=== PATIENT | female | born 1945 | race Caucasian/White ===

== ENCOUNTER → 2016-04-10 | Day surgery (SDC) | payer MEDICARE, OTHER ==
[2016-04-10 13:18] LABS: HCT 34.5 % (37.0-47.0); HGB 10.9 g/dl (12.5-16.0); MCH 26.2 pg (25.0-31.0); MCHC 31.6 g/dL (32.0-36.0); MCV 82.9 fL (78.0-100.0); MPV 8.9 fL (6.0-9.5); RBC 4.16 M/uL (4.20-5.40); RDW 17.3 % (11.5-14.0); WBC 6.5 K/uL (4.0-10.5)
[2016-04-10 13:43] LABS: CREATININE 0.9 mg/dL (0.5-1.0); POTASSIUM 4.5 mmol/L (3.5-5.1)
== END | disposition home or self-care (01) ==
LOC: FAS 13:00
PROVIDERS: Anesthesiology; Legal Medicine
DX: G56.02 Carpal tunnel syndrome, left upper limb (principal); G56.22 Lesion of ulnar nerve, left upper limb; K21.9 Gastro-esophageal reflux disease without esophagitis; I10 Essential (primary) hypertension; I25.10 Atherosclerotic heart disease of native coronary artery without angina pectoris; Z88.2 Allergy status to sulfonamides; Z88.5 Allergy status to narcotic agent; Z88.8 Allergy status to other drugs, medicaments and biological substances; Z86.73 Personal history of transient ischemic attack (TIA), and cerebral infarction without residual deficits; Z95.5 Presence of coronary angioplasty implant and graft; Z85.41 Personal history of malignant neoplasm of cervix uteri; Z90.49 Acquired absence of other specified parts of digestive tract; Z90.710 Acquired absence of both cervix and uterus; Z79.82 Long term (current) use of aspirin; Z79.899 Other long term (current) drug therapy
CPT/HCPCS: 36415; 80048; J1170; J2270; J2405; J2704; J2795

== ENCOUNTER 2016-04-19 22:53 | Day surgery (SDCO) | payer MEDICARE, OTHER ==
[2016-04-20 00:25] LABS: BASOPHIL 0.5 % (0-2); EOSINOPHIL 2.7 % (0-7); HCT 33.5 % (37.0-47.0); HGB 10.9 g/dl (12.5-16.0); LYMPHOCYTE 29.9 % (15-48); MCH 26.8 pg (25.0-31.0); MCHC 32.5 g/dL (32.0-36.0); MCV 82.5 fL (78.0-100.0); MONOCYTE 7.3 % (0-12); MPV 9.2 fL (6.0-9.5); NEUTROPHIL 59.6 % (41-80); PLT 257 K/uL (150-400); RBC 4.06 M/uL (4.20-5.40); RDW 18.3 % (11.5-14.0); WBC 5.9 K/uL (4.0-10.5)
[2016-04-20 00:44] LABS: ALBUMIN 3.4 g/dL (3.4-4.8); BILIRUBIN - TOTAL 0.3 mg/dL (0.1-1.0); CREATININE 0.8 mg/dL (0.5-1.0); GLOBULIN (CALCULATION) 2.5 g/dL (2.2-4.2); POTASSIUM 3.6 mmol/L (3.5-5.1); TOTAL PROTEIN 5.9 g/dL (6.4-8.3)
[2016-04-20 08:18] LABS: BASOPHIL 0.6 % (0-2); EOSINOPHIL 3.5 % (0-7); HCT 32.9 % (37.0-47.0); HGB 10.8 g/dl (12.5-16.0); LYMPHOCYTE 26.6 % (15-48); MCHC 32.8 g/dL (32.0-36.0); MCV 82.3 fL (78.0-100.0); MONOCYTE 6.9 % (0-12); MPV 8.9 fL (6.0-9.5); NEUTROPHIL 62.4 % (41-80); PLT 281 K/uL (150-400); RDW 18.4 % (11.5-14.0); WBC 5.2 K/uL (4.0-10.5)
[2016-04-20 08:37] LABS: INR 0.97 (0.9-1.2); PROTHROMBIN TIME 12.5 SECONDS (11.7-14.0); PTT 26.7 SECONDS (23.2-31.4)
[2016-04-20 08:44] LABS: CREATININE 0.8 mg/dL (0.5-1.0); POTASSIUM 3.7 mmol/L (3.5-5.1)
[2016-04-20 08:46] LABS: CKMB 1.88 ng/mL (0.97-4.94); TROPONIN T < 0.010 ng/mL
== END 2016-04-20 12:05 | disposition other institution (70) ==
LOC: FER 22:53 → FTCU 04-20 03:35
PROVIDERS: Emergency Medicine; Nurse Practitioner Family; ADMIT Internal Medicine
DX: I25.110 Atherosclerotic heart disease of native coronary artery with unstable angina pectoris (principal); I10 Essential (primary) hypertension; Z86.73 Personal history of transient ischemic attack (TIA), and cerebral infarction without residual deficits; Z95.1 Presence of aortocoronary bypass graft; Z95.5 Presence of coronary angioplasty implant and graft; Z90.710 Acquired absence of both cervix and uterus; Z90.49 Acquired absence of other specified parts of digestive tract; Z98.890 Other specified postprocedural states; Z82.49 Family history of ischemic heart disease and other diseases of the circulatory system; Z80.9 Family history of malignant neoplasm, unspecified; Z88.2 Allergy status to sulfonamides; Z88.5 Allergy status to narcotic agent; Z79.82 Long term (current) use of aspirin; Z79.899 Other long term (current) drug therapy
CPT/HCPCS: 36415; 71275; 80048; 80053; 80061; 82550; 82553; 83880; 84484; 85025; 85610; 85730; 93005; G0378; J1170; J2270; Q9967

== ENCOUNTER 2020-04-11 00:24 | Inpatient (IN) | payer MEDICARE, OTHER ==
[~2020-04-11 00:24] MED LIST: ANTIVERT25 MG PO; ASPIRIN EC81 MG PO; BENADRYL25 M1 PO; BRILINTA90 MG PO; COREG12.5 MG PO; DICYCLOMINE; FEOSOL325 MG PO; GABAPENTIN; HYDROXYZINE PAMOATE; INHALER; ISOSORBIDE MONO60 MG PO; LASIX20 MG PO; LIPITOR40 MG PO; NEURONTIN100 M1 PO; NEURONTIN100 MG PO; NITROSTAT; NITROSTAT0.4 MG PO; NORCO 5-325 TA1 EAC1 PO; NORCO 5-325 TA1 EACH PO; PROTONIX 40MG T40 MG PO; RANEXA500 MG PO; ZESTRIL5 MG PO; ZOFRAN4 MG PO; ZOLPIDEM 10MG T10 MG PO
[2020-04-11 01:17] LABS: BASOPHIL 0.9 % (0-2); HCT 36.4 % (37.0-47.0); HGB 11.9 g/dl (12.5-16.0); MCH 30.6 pg (25.0-31.0); MCHC 32.7 g/dL (32.0-36.0); MCV 93.6 fL (78.0-100.0); MONOCYTE 7.8 % (0-12); MPV 9.9 fL (6.0-9.5); NEUTROPHIL 66.4 % (41-80); NRBC 0; PLT 203 K/uL (150-400); RBC 3.89 M/uL (4.20-5.40); RDW 14.1 % (11.5-14.0); WBC 5.3 K/uL (4.0-10.5)
[2020-04-11 01:21] LABS: INR 0.92 (0.9-1.2); PROTHROMBIN TIME 11.7 SECONDS (11.4-13.6); PTT 27.5 SECONDS (22.2-34.7)
[2020-04-11 01:31] LABS: ALBUMIN 2.9 g/dL (3.4-5.0); BILIRUBIN - TOTAL 0.3 mg/dL (0.2-1.0); BUN/CREAT RATIO (CALC) 20.4 RATIO; CREATININE 1.03 mg/dL (0.51-0.95); GLOBULIN (CALCULATION) 3.1 g/dL
[2020-04-11 02:19] LABS: BILIRUBIN NEGATIVE (NEGATIVE); BLOOD NEGATIVE Ery/uL (NEGATIVE); CLARITY CLEAR (CLEAR); COLOR YELLOW (YELLOW); GLUCOSE (U) NORMAL (NORMAL); LEUKOCYTES NEGATIVE Leu/uL (NEGATIVE); NITRITE NEGATIVE (NEGATIVE); PROTEIN NEGATIVE (NEGATIVE); UROBILINOGEN 0.2 mg/dL (0.2-1.0)
[2020-04-12 06:48] LABS: BASOPHIL 0.6 % (0-2); EOSINOPHIL 2.8 % (0-7); HCT 37.5 % (37.0-47.0); HGB 11.8 g/dl (12.5-16.0); LYMPHOCYTE 14.9 % (15-48); MCH 30.3 pg (25.0-31.0); MCHC 31.5 g/dL (32.0-36.0); MCV 96.2 fL (78.0-100.0); MPV 9.9 fL (6.0-9.5); NEUTROPHIL 73.5 % (41-80); NRBC 0; PLT 161 K/uL (150-400); RDW 14.1 % (11.5-14.0)
[2020-04-12 07:32] LABS: ALBUMIN 2.6 g/dL (3.4-5.0); BILIRUBIN - TOTAL 0.6 mg/dL (0.2-1.0); BUN/CREAT RATIO (CALC) 16.9 RATIO; CREATININE 0.89 mg/dL (0.51-0.95); GLOBULIN (CALCULATION) 2.4 g/dL; POTASSIUM 4.3 mmol/L (3.5-5.1)
[2020-06-28] MEDS ORDERED: VENTOLIN HFA IN18 GM INH (10:04)
[2020-06-28] MEDS ORDERED: DEXILANT60 MG PO (10:05)
[2020-06-28] MEDS ORDERED: KEFLEX250 MG PO (10:06)
[2020-06-28] MEDS ORDERED: LOTEMAX5 ML OU (10:06)
== END 2020-04-12 14:05 | disposition other institution (70) | DRG 536 ==
LOC: FER 00:24 → FMS 02:45
PROVIDERS: Emergency Medicine Emergency Medical Services; Nurse Practitioner; ADMIT Internal Medicine
DX: S72.091A Other fracture of head and neck of right femur, initial encounter for closed fracture (principal); I50.32 Chronic diastolic (congestive) heart failure; W18.30XA Fall on same level, unspecified, initial encounter; I25.10 Atherosclerotic heart disease of native coronary artery without angina pectoris; E78.5 Hyperlipidemia, unspecified; F32.9 Major depressive disorder, single episode, unspecified; J44.9 Chronic obstructive pulmonary disease, unspecified; Z95.5 Presence of coronary angioplasty implant and graft; Z88.2 Allergy status to sulfonamides; Z90.710 Acquired absence of both cervix and uterus; Z88.6 Allergy status to analgesic agent; I11.0 Hypertensive heart disease with heart failure
CPT/HCPCS: 36415; 71045; 72170; 73502; 73552; 80053; 81003; 85025; 85610; 85730; 86850; 86900; 86901; 87088; 93005; J1170; J2405; U0002

== ENCOUNTER 2020-06-30 15:11 | Emergency (ER) | payer MEDICARE, OTHER ==
[~2020-06-30 15:11] MED LIST changes: +DEXILANT60 MG PO; +KEFLEX250 MG PO; +LOTEMAX5 ML OU; +VENTOLIN HFA IN18 GM INH
[2020-06-30 16:15] LABS: BASOPHIL 0.4 % (0-2); EOSINOPHIL 0.2 % (0-7); HCT 33.4 % (37.0-47.0); HGB 10.9 g/dl (12.5-16.0); LYMPHOCYTE 2.6 % (15-48); MCH 30.7 pg (25.0-31.0); MCHC 32.6 g/dL (32.0-36.0); MCV 94.1 fL (78.0-100.0); MONOCYTE 3.5 % (0-12); MPV 9.4 fL (6.0-9.5); NEUTROPHIL 92.8 % (41-80); NRBC 0; PLT 215 K/uL (150-400); RBC 3.55 M/uL (4.20-5.40); RDW 15.4 % (11.5-14.0)
[2020-06-30 16:16] LABS: WBC 5.5 K/uL (4.0-10.5)
[2020-06-30 16:17] LABS: BILIRUBIN NEGATIVE (NEGATIVE); BLOOD NEGATIVE Ery/uL (NEGATIVE); CLARITY CLEAR (CLEAR); COLOR YELLOW (YELLOW); GLUCOSE (U) NORMAL (NORMAL); LEUKOCYTES NEGATIVE Leu/uL (NEGATIVE); NITRITE NEGATIVE (NEGATIVE); PROTEIN NEGATIVE (NEGATIVE); UROBILINOGEN 0.2 mg/dL (0.2-1.0)
[2020-06-30 17:20] LABS: ALBUMIN 2.9 g/dL (3.4-5.0); BILIRUBIN - TOTAL 0.3 mg/dL (0.2-1.0); CREATININE 0.78 mg/dL (0.51-0.95); GLOBULIN (CALCULATION) 2.5 g/dL; POTASSIUM 4.1 mmol/L (3.5-5.1); TOTAL PROTEIN 5.4 g/dL (6.4-8.2)
== END 2020-06-30 19:02 | disposition home or self-care (01) ==
LOC: FER 15:11
PROVIDERS: Emergency Medicine
DX: Z45.2 Encounter for adjustment and management of vascular access device (principal); Z95.5 Presence of coronary angioplasty implant and graft; Z88.2 Allergy status to sulfonamides; Z88.5 Allergy status to narcotic agent; Z88.8 Allergy status to other drugs, medicaments and biological substances
CPT/HCPCS: 36415; 80053; 81003; 83605; 84145; 85025; 87040; J1170; J2405; J7030

== ENCOUNTER → 2020-07-02 | Day surgery (SDC) | payer MEDICARE, OTHER | END | disposition home or self-care (01) | LOC: FAS 07:43 | DX: Z45.2 Encounter for adjustment and management of vascular access device (principal); I25.10 Atherosclerotic heart disease of native coronary artery without angina pectoris; F41.9 Anxiety disorder, unspecified; M19.90 Unspecified osteoarthritis, unspecified site; D64.9 Anemia, unspecified; I25.2 Old myocardial infarction; I10 Essential (primary) hypertension; J44.9 Chronic obstructive pulmonary disease, unspecified; G47.30 Sleep apnea, unspecified; M81.0 Age-related osteoporosis without current pathological fracture; Z20.822 Contact with and (suspected) exposure to COVID-19; Z95.5 Presence of coronary angioplasty implant and graft; Z96.619 Presence of unspecified artificial shoulder joint; Z95.828 Presence of other vascular implants and grafts; Z88.5 Allergy status to narcotic agent; Z88.2 Allergy status to sulfonamides; Z88.8 Allergy status to other drugs, medicaments and biological substances; Z79.899 Other long term (current) drug therapy; Z95.1 Presence of aortocoronary bypass graft; Z90.710 Acquired absence of both cervix and uterus; Z98.890 Other specified postprocedural states; Z82.49 Family history of ischemic heart disease and other diseases of the circulatory system | CPT/HCPCS: J2250; J3010 ==

== ENCOUNTER 2021-03-16 21:17 | Inpatient (IN) | payer MEDICARE, OTHER ==
[~2021-03-16] VITALS: Ht 152.4 cm; Wt 50.5 kg
[2021-03-16 21:52] LABS: BASOPHIL 0.3 % (0-2); EOSINOPHIL 0 % (0-7); HCT 39.5 % (37.0-47.0); LYMPHOCYTE 11.1 % (15-48); MCH 30.9 pg (25.0-31.0); MCHC 32.9 g/dL (32.0-36.0); MCV 93.8 fL (78.0-100.0); MONOCYTE 7.4 % (0-12); MPV 9.4 fL (6.0-9.5); NEUTROPHIL 78.5 % (41-80); NRBC 0; PLT 218 K/uL (150-400); RBC 4.21 M/uL (4.20-5.40); RDW 13.8 % (11.5-14.0); WBC 6.7 K/uL (4.0-10.5)
[2021-03-16 21:54] LABS: INR 0.88 (0.9-1.2); PROTHROMBIN TIME 11.4 SECONDS (11.8-13.4); PTT 22.9 SECONDS (24.4-34.7)
[2021-03-16 21:57] LABS: D-DIMER 0.9 ug/mLFEU (0.00-0.41)
[2021-03-16 22:09] LABS: ALBUMIN 3.2 g/dL (3.4-5.0); BILIRUBIN - TOTAL 0.4 mg/dL (0.2-1.0); BUN/CREAT RATIO (CALC) 22.4 RATIO; CREATININE 0.76 mg/dL (0.51-0.95); GLOBULIN (CALCULATION) 3.4 g/dL; POTASSIUM 3.7 mmol/L (3.5-5.1); TOTAL PROTEIN 6.6 g/dL (6.4-8.2)
[2021-03-16 22:17] LABS: LACTIC ACID 1.7 mmol/L (0.4-1.9)
[2021-03-17 08:04] LABS: BUN/CREAT RATIO (CALC) 17.4 RATIO; CREATININE 0.86 mg/dL (0.51-0.95); MAGNESIUM 2.2 mg/dL (1.8-2.4); PHOSPHORUS 2.7 mg/dL (2.6-4.7); POTASSIUM 3.4 mmol/L (3.5-5.1)
[2021-03-17 08:10] LABS: CKMB 0.9 ng/mL (0.0-3.6)
[2021-03-17 08:24] LABS: C-REACTIVE PROTEIN 0.3 mg/dL (<=0.90)
[2021-03-17 09:15] LABS: HCT 34.8 % (37.0-47.0); HGB 11.4 g/dl (12.5-16.0); MCH 31.1 pg (25.0-31.0); MCHC 32.8 g/dL (32.0-36.0); MCV 94.8 fL (78.0-100.0); MPV 9.1 fL (6.0-9.5); RBC 3.67 M/uL (4.20-5.40); RDW 13.9 % (11.5-14.0)
[2021-03-17] MEDS ORDERED: NEURONTIN300 MG PO (09:54)
[2021-03-17] MEDS ORDERED: AMBIEN10 MG PO (09:56)
[2021-03-17] MEDS ORDERED: VICODIN 10/3251 EACH PO (09:56)
--- NOTE | 2021-03-17 19:48 | NUR ---
Patient states unrelieved chest pain 3-4/10. Reviewed prior assessments, patient has reported chest pain 4/10 throughout prior shift. Patient states that she has daily unremitting chest pain, worse at night.
[2021-03-18 06:45] LABS: BUN/CREAT RATIO (CALC) 21.8 RATIO; CREATININE 0.78 mg/dL (0.51-0.95); POTASSIUM 4.2 mmol/L (3.5-5.1)
[2021-03-19 04:24] LABS: BUN/CREAT RATIO (CALC) 26.4 RATIO; CREATININE 0.87 mg/dL (0.51-0.95); POTASSIUM 4.1 mmol/L (3.5-5.1)
[2021-03-19] MEDS ORDERED: HYDRALAZINE 10M10 MG PO (10:33)
--- NOTE | 2021-03-19 12:35 | NUR ---
1152 PATIENT DISCHARGED VIA WHEELCHAIR TO ER DOOR. VERBALIZED UNDERSTANDING OF DISCHARGE INSTRUCTIONS. IV AND MONITOR REMOVED.
== END 2021-03-19 12:00 | disposition home or self-care (01) | DRG 177 ==
LOC: FER 21:17 → FICU 03-17 04:46
PROVIDERS: Emergency Medicine Emergency Medical Services; Nurse Practitioner; Nurse Practitioner Acute Care; ADMIT Family Medicine
PROC: B24BZZZ Ultrasonography of Heart with Aorta (ICD-10-PCS; 2021-03-17)
PROC: XW033E5 Introduction of Remdesivir Anti-infective into Peripheral Vein, Percutaneous Approach, New Technology Group 5 (ICD-10-PCS; principal; 2021-03-19)
PROC: 8E0ZXY6 Isolation (ICD-10-PCS; 2021-03-19)
DX: U07.1 COVID-19 (principal); J12.82 Pneumonia due to coronavirus disease 2019; I50.33 Acute on chronic diastolic (congestive) heart failure; J44.0 Chronic obstructive pulmonary disease with (acute) lower respiratory infection; I16.1 Hypertensive emergency; I13.0 Hypertensive heart and chronic kidney disease with heart failure and stage 1 through stage 4 chronic kidney disease, or unspecified chronic kidney disease; N18.2 Chronic kidney disease, stage 2 (mild); D50.9 Iron deficiency anemia, unspecified; K21.9 Gastro-esophageal reflux disease without esophagitis; E78.5 Hyperlipidemia, unspecified; F32.A Depression, unspecified; M54.9 Dorsalgia, unspecified; E87.6 Hypokalemia; G47.00 Insomnia, unspecified; Z95.1 Presence of aortocoronary bypass graft; Z95.5 Presence of coronary angioplasty implant and graft; Z79.899 Other long term (current) drug therapy; Z88.2 Allergy status to sulfonamides; Z88.6 Allergy status to analgesic agent; Z88.8 Allergy status to other drugs, medicaments and biological substances; Z86.73 Personal history of transient ischemic attack (TIA), and cerebral infarction without residual deficits; Z90.49 Acquired absence of other specified parts of digestive tract; Z90.710 Acquired absence of both cervix and uterus; Z98.890 Other specified postprocedural states; Z98.84 Bariatric surgery status; Z82.49 Family history of ischemic heart disease and other diseases of the circulatory system; I25.2 Old myocardial infarction; Z85.41 Personal history of malignant neoplasm of cervix uteri
CPT/HCPCS: 36415; 71045; 71275; 80048; 80053; 80061; 82553; 82728; 83605; 83615; 83690; 83735; 83880; 84100; 84145; 84484; 85025; 85379; 85610; 85730; 86140; 87040; 93005; 94010; C9399; J0360; J0456; J0696; J1100; J1170; J1650; J1940; J2270; J2405; J7050; Q9967; U0002